=== PATIENT | female | born 1965 ===

== ENCOUNTER 2017-01-14 14:04 | Observation (INO) | payer BC ==
[2017-01-14] MEDS ORDERED: ONDANSETRON HCL 4 MG/2 ML VIAL ONE (14:38)
[2017-01-14] MEDS ORDERED: HYDROmorphone HCL 1 MG/ML SYR ONE (14:46)
[2017-01-14] MEDS ORDERED: MAG-AL PLUS XS SUSP 30 ML UDC PO PRN (16:24)
[2017-01-14] MEDS ORDERED: HOME MEDICATION LIST NEEDED 1 EA EACH MC ONE (16:24)
[2017-01-14] MEDS ORDERED: LORazepam 2 MG/ML INJ IV PRN (16:27)
[2017-01-14] MEDS ORDERED: ALBUTEROL 0.083% 2.5 MG/3 ML VIAL.NEB INHALATION PRN (16:29)
--- NOTE | 2017-01-14 17:18 | ER PHYSICIAN DOCUMENTATION ---
Physician Documentation [facility] ([place], [place]) Name:Enriqueta Alfonso Age:51 yrs Sex:Female :1965 Arrival Date:01/14/2017 Time:14:04 Bed3 Private MD: Tristian Marie Disposition: 01/14/17 15:48 Admit ordered for Riana Page. Preliminary diagnosis is Pancreatitis, Acute. - Bed requested for Medical/Surgical. - Condition is Fair. - Problem is an acute exacerbation. - Symptoms have worsened. 23 HR OBS Yes HPI: 01/14 15:30 This 51 yrs old Unknown Female presents to ER via Private Vehicle with complaints of jm Nausea/Vomiting. 15:30 The patient presents to the emergency department with nausea, with vomiting, with jm associated abdominal pain, of the epigastric area, described as sharp, and radiates to the back. Onset: The symptom(s)/episode began/occurred yesterday, and became worse today. Possible causes: ETOH. The symptoms are alleviated by food . Associated signs and symptoms: Pertinent positives: abdominal pain, nausea, vomiting. Severity of symptoms: in the emergency department the symptoms are unchanged. The patient has experienced similar episodes in the past, and the symptoms today are exactly the same, to when the patient was apparently diagnosed with pacreatitis- last episode was 2 weeks ago. . The patient has been recently seen by a physician: in [place] - sent here for eval. . 51 yo F w hx of ETOHism here from [place] sent for evel. Pt drinks about 10 small shooters of vodka a day and has been for over a week. Pt checked into [facility] last night and has had about 10 episodes of vomiting w severe epigastric pain that is familiar to her. Pt denies other drugs. . Historical: - Home Meds: 1. albuterol sulfate Inhl 2. possibly fluticasone inh 3. Symbicort inhl - PMHx: pancreatitis x2; - PSHx: None; - Tetanus: < 10 years. - Ebola Screening: : Patient negative for fever greater than or equal to 101.5 degrees Fahrenheit, and additional compatible Ebola Virus Disease symptoms. Patient denies exposure to infectious person. Patient denies travel to an Ebola-affected area in the 21 days before illness onset. No symptoms or risks identified at this time. . - Immunization history: Pneumococcal vaccine is up to date, Flu Vaccine < 1 year. - Social history: Smoking status: Patient uses tobacco products, current every day smoker. Patient uses alcohol marijuana. ROS: 15:34 Constitutional: Negative for fatigue, fever. jm 15:34 ENT: Negative for injury or acute deformity, sinus congestion, sinus pain. 15:34 Cardiovascular: Negative for edema. 15:34 Respiratory: Negative for cough, shortness of breath. 15:34 Abdomen/GI: Positive for abdominal pain, nausea, vomiting, Negative for diarrhea. 15:34 Back: Positive for radiated pain. 15:34 MS/extremity: Negative for injury or acute deformity. 15:34 Skin: Negative for jaundice. 15:34 Psych: Positive for anxiety, alcohol dependence, Negative for drug dependence. 15:34 All other systems are negative. Exam: 15:34 Constitutional: The patient appears alert, awake, comfortable. jm 15:34 Eyes: Periorbital structures: appear normal, Conjunctiva: normal. 15:34 ENT: Mouth: is normal, Voice: is normal. 15:34 Cardiovascular: Rate: normal, Rhythm: regular, Pulses: no pulse deficits are appreciated. 15:34 Cardiovascular: Rhythm: 15:34 Respiratory: Respirations: normal, Breath sounds: are normal. 15:34 Abdomen/GI: Bowel sounds: normal, Palpation: severe abdominal tenderness, in the epigastric area. 15:34 Skin: Appearance: Color: pink, no rash present. 15:34 Neuro: Mentation: appropriate for stated age, Memory: is normal. 15:34 Neuro: Abnormal movements: intention tremor, resting tremor. 15:34 Psych: Behavior/mood is pleasant, cooperative, Affect is calm. Vital Signs: 14:20 BP 114 / 76; Pulse 75; Resp 16; Temp 98.0(O); Pulse Ox 94% on R/A; Weight 53.07 kg; sj Height 5 ft. 2 in. (157.48 cm); Pain 8/10; 14:35 Pulse Ox 86% on R/A; sj 14:35 BP 133 / 76; Pulse 69; Resp 14; Pulse Ox 97% on 2 lpm NC; sj 15:08 BP 109 / 67; Pulse 71; Resp 14; Pulse Ox 96% ; Pain 5/10; sj 15:15 BP 116 / 75; Pulse 72; Pulse Ox 96% ; em3 16:00 BP 102 / 64; Pulse 70; Pulse Ox 100% ; em3 16:15 BP 111 / 73; Pulse 65; Pulse Ox 96% ; sj 16:30 BP 97 / 68; Pulse 65; Pulse Ox 97% on 2 lpm NC; sj 16:45 BP 89 / 60; Pulse 62; Pulse Ox 97% ; sj 14:20 Body Mass Index 21.40 (53.07 kg, 157.48 cm) MDM: 14:09 Patient medically screened. 15:35 Differential diagnosis: Nonspecific abd pain, gastritis, pancreatitis. Data reviewed: vital signs, nurses notes, lab test result(s), and as a result, I will. 01/15 06:35 Order name: CBC AUTO DIF, MDIF/RMOR IF IND [facility] 01/15 06:35 Order name: BASIC METABOLIC PANEL [facility] 01/15 06:35 Order name: HEPATIC PANEL [facility] 01/15 06:50 Order name: LIPASE [facility] 01/16 06:36 Order name: CBC AUTO DIF, MDIF/RMOR IF IND [facility] 01/16 06:48 Order name: COMPREHENSIVE METABOLIC PANEL [facility] 01/16 06:48 Order name: LIPASE [facility] 01/14 14:32 Order name: Iv Saline Lock; Complete Time: 14:56 01/14 14:32 Order name: Pulse Ox Continuous; Complete Time: 14:56 01/14 14:56 Order name: Oxygen; Complete Time: 15:02 Dispensed Medications: 14:27 Drug: NS 0.9% 1000 ml; Route: IV; Rate: bolus; Site: right forearm; sj 15:07 Follow up: IV Status: Completed infusion; IV Intake: 1000ml 14:28 Drug: Zofran 4 mg; Route: IVP; Infused Over: 2 mins; Site: right forearm; sj 15:07 Follow up: Response: Nausea is decreased sj 14:35 Drug: Dilaudid 1 mg; Route: IVP; Site: right forearm; sj 15:07 Follow up: Response: Pain is decreased 14:35 Drug: Phenergan 12.5 mg; Route: IVP; Site: right forearm; sj 15:07 Follow up: Response: Nausea is decreased sj 15:02 Drug: NS 0.9% 1000 ml; Route: IV; Rate: bolus; Site: right forearm; sj 16:19 Follow up: IV Status: Completed infusion; IV Intake: 1000ml sj Signatures: Tristian Mercado MD MD jm Janzen, Sarah sj
--- NOTE | 2017-01-14 17:18 | ER NURSING DOCUMENTATION ---
Nurse's Notes [facility] Name:Enriqueta Alfonso Age:51 yrs Sex:Female :1965 Arrival Date:01/14/2017 Time:14:04 Bed3 Private MD: Diagnosis:Pancreatitis, Acute Presentation: 01/14 14:43 Presenting complaint: Patient states: Nausea and vomiting today x8, unable to keep sj fluids down. Undergoing treatment at [facility] for detox. Last drink yesterday. History of pancreatitis. Pain across upper abdomen is similar. Transition of care: [facility]. Notified ED Physician of patient's arrival and CC Rogelio Angel notified. 14:43 Acuity: QIAN 3 sj 14:43 Method Of Arrival: Private Vehicle Triage Assessment: 14:50 General: Appears distressed, malnourished, Behavior is cooperative, restless. Pain: sj Complains of pain in right upper quadrant and left upper quadrant Pain currently is 8 out of 10 on a pain scale. Neuro: Level of Consciousness is awake, alert, Oriented to person, place, time, event. Cardiovascular: Capillary refill < 3 seconds. Respiratory: Respiratory effort is even, unlabored, Respiratory pattern is regular. Historical: - Home Meds: 1. albuterol sulfate Inhl 2. possibly fluticasone inh 3. Symbicort inhl - PMHx: pancreatitis x2; - PSHx: None; - Tetanus: < 10 years. - Ebola Screening: : Patient negative for fever greater than or equal to 101.5 degrees Fahrenheit, and additional compatible Ebola Virus Disease symptoms. Patient denies exposure to infectious person. Patient denies travel to an Ebola-affected area in the 21 days before illness onset. No symptoms or risks identified at this time. . - Immunization history: Pneumococcal vaccine is up to date, Flu Vaccine < 1 year. - Social history: Smoking status: Patient uses tobacco products, current every day smoker. Patient uses alcohol marijuana. Screenin:54 Infectious Disease Risk None. Abuse screen: Denies threats or abuse. Denies injuries sj from another. Nutritional screening: chronic ETOH, probable malnutrition, appears very thin. Vital Signs: 14:20 BP 114 / 76; Pulse 75; Resp 16; Temp 98.0(O); Pulse Ox 94% on R/A; Weight 53.07 kg; sj Height 5 ft. 2 in. (157.48 cm); Pain 8/10; 14:35 Pulse Ox 86% on R/A; sj 14:35 BP 133 / 76; Pulse 69; Resp 14; Pulse Ox 97% on 2 lpm NC; sj 15:08 BP 109 / 67; Pulse 71; Resp 14; Pulse Ox 96% ; Pain 5/10; sj 15:15 BP 116 / 75; Pulse 72; Pulse Ox 96% ; em3 16:00 BP 102 / 64; Pulse 70; Pulse Ox 100% ; em3 16:15 BP 111 / 73; Pulse 65; Pulse Ox 96% ; sj 16:30 BP 97 / 68; Pulse 65; Pulse Ox 97% on 2 lpm NC; sj 16:45 BP 89 / 60; Pulse 62; Pulse Ox 97% ; sj 14:20 Body Mass Index 21.40 (53.07 kg, 157.48 cm) ED Course: 14:05 Patient arrived in ED. lm3 14:22 Tristian Mercado MD is Attending Physician. jm 14:43 Annie Feldman is Primary Nurse. sj 14:44 Triage completed. sj 14:54 Valuables Remains with patient Patient has correct armband on for positive sj identification. Placed in gown. Bed in low position. Call light in reach. Side rails up X2. 14:55 Inserted peripheral IV: 20 gauge in right forearm and blood collected. Oxygen Oxygen sj administration via nasal cannula @ 2L/min. 15:47 Riana Page MD is Admitting Physician. janelle Administered Medications: 14:27 Drug: NS 0.9% 1000 ml; Route: IV; Rate: bolus; Site: right forearm; sj 15:07 Follow up: IV Status: Completed infusion; IV Intake: 1000ml 14:28 Drug: Zofran 4 mg; Route: IVP; Infused Over: 2 mins; Site: right forearm; sj 15:07 Follow up: Response: Nausea is decreased sj 14:35 Drug: Dilaudid 1 mg; Route: IVP; Site: right forearm; sj 15:07 Follow up: Response: Pain is decreased sj 14:35 Drug: Phenergan 12.5 mg; Route: IVP; Site: right forearm; sj 15:07 Follow up: Response: Nausea is decreased 15:02 Drug: NS 0.9% 1000 ml; Route: IV; Rate: bolus; Site: right forearm; sj 16:19 Follow up: IV Status: Completed infusion; IV Intake: 1000ml Intake: 15:07 IV: 1000ml; Total: 1000ml. sj 16:19 IV: 1000ml; Total: 2000ml. Outcome: 15:48 Decision to Admit by Provider. janelle 17:17 Patient left the ED. sj Signatures: Tristian Mercado MD MD jm Meiklejohn, Eric em3 Annie Feldman Lisa lm3
[2017-01-14] MEDS: POTASSIUM CHLORIDE/NS 1,000 ML IV SCH (17:56)
[2017-01-14] MEDS ORDERED: HOME MEDICATION LIST NEEDED 1 EA EACH MISC ONE (18:00)
[2017-01-14] MEDS ORDERED: FLUTICASONE/SALMETEROL 100/50 14 INH DISK INHALATION SCH (19:30)
[2017-01-14] MEDS: HYDROmorphone HCL 1 MG/ML SYR IV PRN (19:32)
[2017-01-14] MEDS: FLUTICASONE/SALMETEROL 100/50 14 INH DISK INHALATION SCH (20:33)
--- NOTE | 2017-01-14 23:11 | HISTORY & PHYSICAL ---
DATE OF ADMISSION: 01/14/17 ATTENDING PHYSICIAN: Riana Page MD HISTORY OF PRESENT ILLNESS: This 51 year-old lady had a bout of pancreatis 2 weeks ago and was treated elsewhere. She recovered well. Unfortunately she returned to drinking 10 small dose bottles of hard liquor a day for the last 10 days, her last drink was early on 01/13/17 just before being admitted to [facility] here in [place]. This morning she was doubled over with significant abdominal pain, likely a recurrence of pancreatitis. She had at least ten episodes of nausea and vomiting. She was brought to the Emergency Room where her pain was easily controlled with some IV Dilaudid. Her labs found to be fairly mildly abnormal. Her vital signs very stable, so she is decided to be appropriate for admission here at [facility] [place] [place]. PAST MEDICAL HISTORY 1. Asthma. 2. Alcoholism. 3. Previous pancreatitis. SOCIAL HISTORY: She does smoke about a half pack per day. Her alcohol habit is as described above. She apparently she has had the pattern of binge drinking. She is here in [place] to attend the [place] [facility]. FAMILY HISTORY: Noncontributory. ALLERGIES: No known drug allergies. MEDICATIONS Symbicort 80/4.5 2 puffs b.i.d. Albuterol nebs q.4 hours PRN shortness of breath or wheezing. LABORATORY DATA: From the Emergency Room with a fairly normal CBC. Chemistry is remarkable only for a phosphorus of 5.1, total bilirubin is normal. AST 273, ALT 125, alkaline phosphatase 127 which is almost not elevated at all. Her amylase was normal at 95. Her lipase is elevated at 1,020. PHYSICAL EXAMINATION VITAL SIGNS: In the Emergency Room she was not tachycardic. Her blood pressure was 96/70. She had a fine and normal pulse oxygenation on room air. GENERAL: She is pleasant middle age lady with a bit of an odd affect, possibly related to recent Dilaudid. She tends to talk with her eyes closed and some delay in answering questions. HEENT: Unremarkable. CARDIAC: Regular rate and rhythm with no murmur noted. CHEST: Clear to auscultation throughout. There are no wheezes, but she is asking for a nebulizer treatment. ABDOMEN: Normoactive bowel sounds. Abdomen is mildly tender in the epigastric region at this time, but apparently was more tender previously. The lower quadrants are unremarkable. EXTREMITIES: Without injury, bruising erythema. Negative Homans sign. ASSESSMENT AND PLAN 1. Mild acute pancreatitis. Her labs are consistent with her exam and history. She will be monitored for signs of withdrawal but apparently has not had problems with seizures or serious withdrawal symptoms in the past. Ativan is available if we should see signs of withdrawal. She will be maintained on IV fluids and ice chips for now. Labs reassessed in the morning as well as her exam and consider advancing diet as tolerated tomorrow. Ultimately our hope is to get her back to [place]. 2. Asthma. We really do not have a lot of information about her past medical history or her asthma. She states that it is generally well controlled. Maybe a little worse with spring allergies. We will continue her Symbicort and Albuterol nebs as needed. JOHNY
[2017-01-15] MEDS: POTASSIUM CHLORIDE/NS 1,000 ML IV SCH ×4 (00:08→20:12)
[2017-01-15] MEDS ORDERED: ONDANSETRON HCL 4 MG/2 ML VIAL IV PRN (01:51)
[2017-01-15] MEDS: HYDROmorphone HCL 1 MG/ML SYR IV PRN ×6 (01:57→20:15)
[2017-01-15 06:16] LABS: BASOPHIL# 0.1 X 10^3uL (0.0-0.1); BASOPHILS 1.3 % (0.0-2.0); EOSINOPHILS 1.9 % (0.0-6.0); EOSINOPHILS# 0.1 X 10^3uL (0.0-0.4); HEMATOCRIT 33.9 % (36.0-48.0); HEMOGLOBIN 11.3 g/dL (12.0-16.0); LYMPHOCYTES# 1.2 X 10^3uL (0.8-3.8); MEAN CELL VOLUME 99.3 fL (80.0-100.0); MEAN CORPUS. HGB CONCENTRATION 33.4 g/dL (32.0-36.0); MEAN CORPUSCULAR HEMOGLOBIN 33.2 pg (29.0-35.0); MEAN PLATELET VOLUME 8.1 fL (7.4-10.4); MONOCYTES# 0.3 X 10^3uL (0.2-1.0); NEUTROPHILS 64.8 % (54.0-75.0); NEUTROPHILS# 3.1 X 10^3uL (2.6-6.7); PLATELET COUNT 151 X 10^3uL (130-440); RED BLOOD COUNT 3.42 X 10^6uL (4.20-6.10); RED CELL DISTRIBUTION WIDTH 12.4 % (11.5-14.5); WHITE BLOOD COUNT 4.8 X 10^3uL (3.9-10.7)
[2017-01-15 06:29] LABS: ALBUMIN 3.6 g/dL (3.5-5.0); ALKALINE PHOSPHATASE 90 U/L (38-126); ALT 92 U/L (9-52); AST 143 U/L (14-36); BILIRUBIN, DIRECT 0.1 mg/dL (0.0-0.4); BILIRUBIN, TOTAL 0.8 mg/dL (0.2-1.3); BLOOD UREA NITROGEN 9 mg/dL (7-17); CALCIUM 8.7 mg/dL (8.4-10.2); CHLORIDE 108 mmol/L (98-107); CREATININE 0.5 mg/dL (0.5-1.0); EST GLOMERULAR FILTRATION RATE > 60 mL/min; GLUCOSE 83 mg/dL (70-100); POTASSIUM 4.8 mmol/L (3.5-5.1); SODIUM 140 mmol/L (137-145); TOTAL PROTEIN 6.7 g/dL (6.3-8.2)
[2017-01-15 06:50] LABS: LIPASE 4539 U/L (23-300)
[2017-01-15] MEDS: FLUTICASONE/SALMETEROL 100/50 14 INH DISK INHALATION SCH ×2 (08:20→20:12)
--- NOTE | 2017-01-15 10:15 | PROGRESS NOTE: IM APSO ---
Assessment and Plan - Date of Encounter Date of Encounter: 01/15/17 (1) Pancreatitis Status: Acute Assessment and plan: Hospitalized last year for two weeks, and seen as outpt with pancreatitis 2 wks ago, txd as outpt at her choice. We reviewed with in the room that alcohol is a toxin and directly causes this. Lipase is more elevated, expect it to drop tomorrow. Minimal ice chips and otherwise NPO, labs are fine on IVF. Dilauded with expectation of decreasing dosing today, reassess tomorrow. Current Visit: Yes (2) Alcohol abuse Status: Chronic Assessment and plan: Potential for withdrawal, altho very minimal signs; will dose librium for today and monitor closely. VSS, no hallucinations, minimal tremulousness that is probably pain as much as withdrawal. Current Visit: Yes - Time Spent With Patient Total time spent with greater than 50% in coordination of care (as documented) at patient's floor/unit and/or counseling patient: IM: PN Subjective General: pain Respiratory: no cough Gastrointestinal: abdominal pain IM: PN Objective Exam - I&O/Vital Signs I&O: Intake & Output 01/14/17 01/15/17 01/15/17 21:59 05:59 13:59 Intake Total 1800 Output Total 375 Balance 1425 Weight 52.5 kg Intake: IV 1800 Right Forearm 1800 Output: Urine 375 Other: Urine Appearance Clear Clear Urine Color Light Noreen Light Noreen Voiding Method Toilet Toilet # Voids 1 Vital Signs: Last Vital Signs Temp 36.6 C 01/15/17 05:54 Pulse 60 01/15/17 05:54 Resp 18 01/15/17 08:25 BP 114/70 01/15/17 05:54 Pulse Ox 95 01/15/17 08:25 Oxygen Flow Rate 2 Oxygen Delivery Method Nasal Cannula - Constitutional General appearance: Present: acute distress (Pt rocking in bed. in room , with approp questions and concerns. Staff state pt did wellwith q4 dilaudid last night, but pt is always pushing for more ice chips and medication. No ativan needed yet. CIWAs stable at 4-5) - ENT ENT exam: Present: mucous membranes moist - Respiratory Respiratory exam: Present: clear. Absent: accessory muscle use - Cardiovascular Cardiovascular exam: Present: RRR - GI/Abdominal GI/Abdominal exam: Present: normal bowel sounds, soft, tenderness (epigastric area only) - Extremities Exam Extremities exam: Absent: Micaela's Sign, edema - Psychiatric Psychiatric exam: Present: anxious (Pleasant, understands situation, but dramatic holding upper abd and rocking) - Lab Labs: Laboratory Last Values WBC 4.8 X 10^3uL (3.9-10.7) 01/15/17 06:00 RBC 3.42 X 10^6uL (4.20-6.10) L 01/15/17 06:00 Hgb 11.3 g/dL (12.0-16.0) L 01/15/17 06:00 Hct 33.9 % (36.0-48.0) L 01/15/17 06:00 MCV 99.3 fL (80.0-100.0) 01/15/17 06:00 MCH 33.2 pg (29.0-35.0) 01/15/17 06:00 MCHC 33.4 g/dL (32.0-36.0) 01/15/17 06:00 RDW 12.4 % (11.5-14.5) 01/15/17 06:00 Plt Count 151 X 10^3uL (130-440) 01/15/17 06:00 MPV 8.1 fL (7.4-10.4) 01/15/17 06:00 Neutrophils % 64.8 % (54.0-75.0) 01/15/17 06:00 Lymphocytes % 26.0 % (20.0-40.0) 01/15/17 06:00 Eosinophils % 1.9 % (0.0-6.0) 01/15/17 06:00 Basophils % 1.3 % (0.0-2.0) 01/15/17 06:00 Neutrophils # 3.1 X 10^3uL (2.6-6.7) 01/15/17 06:00 Lymphocytes # 1.2 X 10^3uL (0.8-3.8) 01/15/17 06:00 Monocytes 6.0 % (2.0-10.0) 01/15/17 06:00 Monocytes # 0.3 X 10^3uL (0.2-1.0) 01/15/17 06:00 Eosinophils # 0.1 X 10^3uL (0.0-0.4) 01/15/17 06:00 Basophils # 0.1 X 10^3uL (0.0-0.1) 01/15/17 06:00 Sodium 140 mmol/L (137-145) 01/15/17 06:00 Potassium 4.8 mmol/L (3.5-5.1) 01/15/17 06:00 Chloride 108 mmol/L (98-107) H 01/15/17 06:00 Carbon Dioxide 23 mmol/L (22-30) 01/15/17 06:00 BUN 9 mg/dL (7-17) 01/15/17 06:00 Creatinine 0.5 mg/dL (0.5-1.0) 01/15/17 06:00 GFR Calculation > 60 mL/min 01/15/17 06:00 Glucose 83 mg/dL (70-100) 01/15/17 06:00 Calcium 8.7 mg/dL (8.4-10.2) 01/15/17 06:00 Total Bilirubin 0.8 mg/dL (0.2-1.3) 01/15/17 06:00 Direct Bilirubin 0.1 mg/dL (0.0-0.4) 01/15/17 06:00 AST 143 U/L (14-36) H 01/15/17 06:00 ALT 92 U/L (9-52) H 01/15/17 06:00 Alkaline Phosphatase 90 U/L (38-126) 01/15/17 06:00 Total Protein 6.7 g/dL (6.3-8.2) 01/15/17 06:00 Albumin 3.6 g/dL (3.5-5.0) 01/15/17 06:00 Lipase 4539 U/L (23-300) H 01/15/17 06:00 Quality Questions - VTE Prophylaxis Assessment VTE Present on Admission?: No Patient at risk for venous thromboembolism?: Yes VTE Risk Level: Low Risk Pharmaceutical VTE prophylaxis contraindication reason: not indicated Mechanical VTE prophylaxis contraindication reason: N/A- VTE prophylaxsis ordered
[2017-01-15] MEDS: CHLORDIAZEPOXIDE 25 MG CAPSULE PO SCH ×3 (10:41→20:12)
[2017-01-16] MEDS: HYDROmorphone HCL 1 MG/ML SYR IV PRN ×3 (00:26→10:19)
[2017-01-16] MEDS: POTASSIUM CHLORIDE/NS 1,000 ML IV SCH ×2 (02:27→09:46)
[2017-01-16 06:29] LABS: BASOPHILS 0.5 % (0.0-2.0); EOSINOPHILS 1.9 % (0.0-6.0); EOSINOPHILS# 0.1 X 10^3uL (0.0-0.4); HEMATOCRIT 34.5 % (36.0-48.0); HEMOGLOBIN 11.9 g/dL (12.0-16.0); LYMPHOCYTES 18.7 % (20.0-40.0); LYMPHOCYTES# 1.1 X 10^3uL (0.8-3.8); MEAN CELL VOLUME 98.8 fL (80.0-100.0); MEAN CORPUS. HGB CONCENTRATION 34.4 g/dL (32.0-36.0); MEAN PLATELET VOLUME 8.3 fL (7.4-10.4); MONOCYTES 8.4 % (2.0-10.0); MONOCYTES# 0.5 X 10^3uL (0.2-1.0); NEUTROPHILS 70.5 % (54.0-75.0); NEUTROPHILS# 4.2 X 10^3uL (2.6-6.7); PLATELET COUNT 159 X 10^3uL (130-440); RED BLOOD COUNT 3.49 X 10^6uL (4.20-6.10); RED CELL DISTRIBUTION WIDTH 12.2 % (11.5-14.5); WHITE BLOOD COUNT 5.9 X 10^3uL (3.9-10.7)
[2017-01-16 06:34] LABS: A/G RATIO 1.2; ALBUMIN 3.8 g/dL (3.5-5.0); ALKALINE PHOSPHATASE 90 U/L (38-126); ALT 79 U/L (9-52); AST 102 U/L (14-36); BILIRUBIN, TOTAL 0.9 mg/dL (0.2-1.3); BLOOD UREA NITROGEN 4 mg/dL (7-17); CALCIUM 9.3 mg/dL (8.4-10.2); CHLORIDE 98 mmol/L (98-107); CREATININE 0.5 mg/dL (0.5-1.0); EST GLOMERULAR FILTRATION RATE > 60 mL/min; GLUCOSE 58 mg/dL (70-100); POTASSIUM 4.6 mmol/L (3.5-5.1); SODIUM 131 mmol/L (137-145)
[2017-01-16 06:47] LABS: LIPASE 2269 U/L (23-300)
[2017-01-16] MEDS: FLUTICASONE/SALMETEROL 100/50 14 INH DISK INHALATION SCH ×2 (08:22→20:31)
[2017-01-16] MEDS: CHLORDIAZEPOXIDE 25 MG CAPSULE PO SCH ×3 (08:32→20:31)
[2017-01-16] MEDS ORDERED: POTASSIUM CHLORIDE/NS 1,000 ML IV SCH (10:48)
[2017-01-16] MEDS ORDERED: APAP PO PRN (11:46)
[2017-01-16] MEDS ORDERED: HYDROCODONE PO PRN (11:46)
--- NOTE | 2017-01-16 11:46 | PROGRESS NOTE: IM APSO ---
Assessment and Plan - Date of Encounter Date of Encounter: 01/16/17 (1) Pancreatitis Status: Acute Assessment and plan: labs and pain pattern improved, but just required a dose of Dilaudid. Hard to know how much of this may be substance misuse, but probably not a candidate for d/c today. We discussed that to return to [place] she must not require pain medication, she must take PO well, probably in AM. Current Visit: Yes (2) Alcohol abuse Status: Chronic Assessment and plan: States she is eager to return to [place], I backed up her perspective. She understands EtOH caused this recurring abd pain. Current Visit: Yes - Time Spent With Patient Total time spent with greater than 50% in coordination of care (as documented) at patient's floor/unit and/or counseling patient: IM: PN Subjective General: pain (Did well in the last 24 hrs, but just insisted on 8/10 pain and rec'd a dose of dilaudid) Respiratory: no cough Gastrointestinal: abdominal pain IM: PN Objective Exam - I&O/Vital Signs I&O: Intake & Output 01/15/17 01/16/17 01/16/17 21:59 05:59 13:59 Intake Total 1650 1500 Output Total 1230 1700 Balance 420 -200 Intake: IV 1650 1500 Right Forearm 1650 1500 Output: Urine 1230 1700 Other: Urine Appearance Clear Clear Urine Color Yellow Yellow Voiding Method Toilet Toilet Toilet Vital Signs: Last Vital Signs Temp 36.7 C 01/16/17 11:00 Pulse 66 01/16/17 11:00 Resp 12 01/16/17 11:00 BP 114/76 01/16/17 11:00 Pulse Ox 96 01/16/17 11:00 Oxygen Flow Rate 2 Oxygen Delivery Method Nasal Cannula - Constitutional General appearance: Absent: acute distress - ENT ENT exam: Present: mucous membranes moist - Respiratory Respiratory exam: Present: clear. Absent: accessory muscle use - Cardiovascular Cardiovascular exam: Present: RRR - GI/Abdominal GI/Abdominal exam: Present: normal bowel sounds, soft, tenderness (epigastric area only, and very mild, but just had Dilaudid) - Extremities Exam Extremities exam: Absent: Micaela's Sign, edema - Psychiatric Psychiatric exam: Present: anxious (Pleasant, understands situation, but dramatic holding upper abd and rocking) - Lab Labs: Laboratory Last Values WBC 5.9 X 10^3uL (3.9-10.7) 01/16/17 06:00 RBC 3.49 X 10^6uL (4.20-6.10) L 01/16/17 06:00 Hgb 11.9 g/dL (12.0-16.0) L 01/16/17 06:00 Hct 34.5 % (36.0-48.0) L 01/16/17 06:00 MCV 98.8 fL (80.0-100.0) 01/16/17 06:00 MCH 34.0 pg (29.0-35.0) 01/16/17 06:00 MCHC 34.4 g/dL (32.0-36.0) 01/16/17 06:00 RDW 12.2 % (11.5-14.5) 01/16/17 06:00 Plt Count 159 X 10^3uL (130-440) 01/16/17 06:00 MPV 8.3 fL (7.4-10.4) 01/16/17 06:00 Neutrophils % 70.5 % (54.0-75.0) 01/16/17 06:00 Lymphocytes % 18.7 % (20.0-40.0) L 01/16/17 06:00 Eosinophils % 1.9 % (0.0-6.0) 01/16/17 06:00 Basophils % 0.5 % (0.0-2.0) 01/16/17 06:00 Neutrophils # 4.2 X 10^3uL (2.6-6.7) 01/16/17 06:00 Lymphocytes # 1.1 X 10^3uL (0.8-3.8) 01/16/17 06:00 Monocytes 8.4 % (2.0-10.0) 01/16/17 06:00 Monocytes # 0.5 X 10^3uL (0.2-1.0) 01/16/17 06:00 Eosinophils # 0.1 X 10^3uL (0.0-0.4) 01/16/17 06:00 Basophils # 0.0 X 10^3uL (0.0-0.1) 01/16/17 06:00 Sodium 131 mmol/L (137-145) L D 01/16/17 06:00 Potassium 4.6 mmol/L (3.5-5.1) 01/16/17 06:00 Chloride 98 mmol/L (98-107) 01/16/17 06:00 Carbon Dioxide 22 mmol/L (22-30) 01/16/17 06:00 BUN 4 mg/dL (7-17) L D 01/16/17 06:00 Creatinine 0.5 mg/dL (0.5-1.0) 01/16/17 06:00 GFR Calculation > 60 mL/min 01/16/17 06:00 Glucose 58 mg/dL (70-100) L 01/16/17 06:00 Calcium 9.3 mg/dL (8.4-10.2) 01/16/17 06:00 Total Bilirubin 0.9 mg/dL (0.2-1.3) 01/16/17 06:00 Direct Bilirubin 0.1 mg/dL (0.0-0.4) 01/15/17 06:00 AST 102 U/L (14-36) H 01/16/17 06:00 ALT 79 U/L (9-52) H 01/16/17 06:00 Alkaline Phosphatase 90 U/L (38-126) 01/16/17 06:00 Total Protein 7.0 g/dL (6.3-8.2) 01/16/17 06:00 Albumin 3.8 g/dL (3.5-5.0) 01/16/17 06:00 Albumin/Globulin Ratio 1.2 01/16/17 06:00 Lipase 2269 U/L (23-300) H 01/16/17 06:00
[2017-01-16] MEDS: LORazepam 0.5 MG TABLET PO PRN ×2 (15:51→21:45)
[2017-01-16] MEDS: NICOTINE 21 MG PATCH TRANSDERM SCH (18:07)
[2017-01-16] MEDS ORDERED: NICOTINE 21 MG PATCH ONE (18:15)
[2017-01-17 03:26] VITALS: RESP 16
[2017-01-17] MEDS: LORazepam 0.5 MG TABLET PO PRN (04:28)
[2017-01-17 07:03] VITALS: BP 112/85; PULSE 98; TEMP 97.5; O2SAT 93
--- NOTE | 2017-01-17 08:39 | DC SUMMARY: IM Note ---
Discharge Summary: IM/Peds Provider: Date of Admission: 01/14/17 Admitting Provider: ANTONY HERRERA MD Attending Provider: ANTONY HERRERA MD Discharging Provider: ANTONY HERRERA MD Primary Care Provider: Discharge Date: 01/17/17 - Diagnosis (1) Pancreatitis Status: Acute (2) Alcohol abuse Status: Chronic (3) Tobacco abuse Status: Acute - Time Spent with Patient Total time spent providing and/or coordinating discharge services: Discharge - Patient/Caregiver Discharge Instructions Activity Level: As tolerated Diet: Regular diet, may do better avoiding high fat foods Additional Instructions: Best wishes with your treatment program! Remember, pancreatitis is inflammation of the pancreas triggered by alcohol, and it can be life threatening. Not only is it painful, if it is a severe case the pancreas can end up digesting itself and other nearby tissues. You are very high risk for having pancreatitis any time you drink alcohol in the future. I hope Ramonita is a great start toward your recovery, and remember to attend AA meetings or whatever they recommmend to stay sober forever and preserve your health. Follow up: Tiana Shipman [Other] - 01/17/17 Overall discharge status: patient is progressing back to baseline, stable Care Plan Goals: Call 911 Get emergency medical care for any of the following: Vomiting blood or large amounts of blood in stool Seizure Loss of consciousness Disposition: HOME, SELF-CARE Discharge Summary Data - Medication History Medication History: Home Medications Albuterol 0.083% [Ventolin 0.083% Neb Soln*] 1 vial NEB Q4H PRN 01/14/17 Albuterol Hfa [Proventil Hfa Inhaler] 1 - 2 inh IH Q4H PRN 01/14/17 Budesonide/Formoterol Fumarate [Symbicort 80-4.5 Mcg Inhaler] 2 puff INHALATION BID 01/14/17 Inpatient Medications 01/14/17 21:00 Fluticasone/Salmeterol 100/50 [Advair 100/50 Diskus] 1 inh INHALATION BID 01/15/17 10:15 Chlordiazepoxide HCl [Librium] 25 mg PO TID 01/16/17 15:46 LORazepam [Ativan] 0.5 mg PO Q6H PRN 01/16/17 18:00 Nicotine [Nicoderm Patch] 21 mg TRANSDERM DAILY Procedures and tests throughout hospitalization: Completed Lab Orders 01/16/17 06:00 CBC AUTO DIF, MDIF/RMOR IF IND [HEM] AMDRAW LIPASE [CHEM] AMDRAW cmp [COMPREHENSIVE METABOLIC PANEL] [CHEM] AMDRAW 01/17/17 06:13 LIPASE [CHEM] AMDRAW Pending Orders 01/14/17 18:29 Smoking Cessation Teaching by RT [RT] Routine 01/14/17 21:00 Fluticasone/Salmeterol 100/50 [Advair 100/50 Diskus] 1 inh INHALATION BID 01/15/17 10:15 Chlordiazepoxide HCl [Librium] 25 mg PO TID 01/16/17 15:45 Advance diet as tolerated . 01/16/17 15:46 LORazepam [Ativan] 0.5 mg PO Q6H PRN 01/16/17 18:00 Nicotine [Nicoderm Patch] 21 mg TRANSDERM DAILY Labs on day of discharge: Labs from last 24 hours 01/17/17 06:13 Lipase 1538 H IM: Discharge Physical Exam - I&O/Vital Signs I&O: Intake & Output 01/16/17 01/17/17 01/17/17 21:59 05:59 13:59 Intake Total 1230 Output Total 2024 Balance -795 Intake: Oral 1230 Output: Urine 2024 Other: Urine Appearance Clear Urine Color Yellow Voiding Method Toilet # Voids 2 1 Vital Signs: Last Vital Signs Temp 36.4 C L 01/17/17 07:00 Pulse 98 H 01/17/17 07:00 Resp 16 01/17/17 07:00 BP 112/85 01/17/17 07:00 Pulse Ox 93 01/17/17 07:00 Oxygen Flow Rate 0 Oxygen Delivery Method Room Air - Constitutional General appearance: Absent: acute distress - ENT ENT exam: Present: mucous membranes moist - Respiratory Respiratory exam: Present: clear. Absent: accessory muscle use - Cardiovascular Cardiovascular exam: Present: RRR - GI/Abdominal GI/Abdominal exam: Present: normal bowel sounds, soft, tenderness (epigastric area only, and very mild) - Extremities Exam Extremities exam: Absent: Micaela's Sign, edema - Psychiatric Psychiatric exam: Present: anxious (Moving comfortably about the room, mild tremor still)
[2017-01-17] MEDS: CHLORDIAZEPOXIDE 25 MG CAPSULE PO SCH (08:50)
[2017-01-17] MEDS: NICOTINE 21 MG PATCH TRANSDERM SCH (08:51)
[2017-01-17] MEDS: FLUTICASONE/SALMETEROL 100/50 14 INH DISK INHALATION SCH (09:31)
== END 2017-01-17 09:00 | disposition home or self-care (01) ==
LOC: ER 14:04 → IN 17:05
PROVIDERS: ADMIT Family Medicine; ATTEND Family Medicine
DX: K85.20 Alcohol induced acute pancreatitis without necrosis or infection (principal); F10.10 Alcohol abuse, uncomplicated; J45.909 Unspecified asthma, uncomplicated; Z72.0 Tobacco use
CPT/HCPCS: 36415; 80048; 80053; 80076; 83690; 85025; 94640; 96361; 96374; 96375; 96376; 99284; G0378; J1170; J2405; J2550; J3480; J7613; S4990